=== PATIENT | female | born 1985 | race Caucasian/White ===

== ENCOUNTER 2018-08-31 01:21 | Inpatient (IN) | payer MEDICAID ==
[~2018-08-31] VITALS: Ht 160 cm; Wt 78.4 kg
[2018-08-31 01:41] VITALS: BP 123/79; PULSE 77; RESP 18; Ht 160 cm; Wt 78.4 kg
[2018-08-31] MEDS ORDERED: LACTATED RINGER'S 1,000 ML IV SCH (01:52)
[2018-08-31] MEDS ORDERED: LACTATED RINGER'S 1,000 ML IV PRN (01:52)
[2018-08-31] MEDS ORDERED: OXYTOCIN 30 UNITS/LR 500 ML IV SCH ×3 (02:00)
[2018-08-31] MEDS ORDERED: IBUPROFEN 600 MG TAB PO PRN (02:00)
[2018-08-31] MEDS ORDERED: METHYLERGONOVINE 0.2 MG INJ IM PRN ×2 (02:00→12:30)
[2018-08-31] MEDS ORDERED: BUTORPHANOL 2 MG INJ IV PRN ×2 (02:00)
[2018-08-31] MEDS ORDERED: MINERAL OIL LIGHT 10 ML VIAL TOP PRN (02:00)
[2018-08-31] MEDS ORDERED: MISOPROSTOL 200 MCG TAB PR PRN ×2 (02:00→12:30)
[2018-08-31] MEDS ORDERED: OXYTOCIN 30 UNITS/LR 500 ML IV PRN ×2 (02:00→12:30)
[2018-08-31] MEDS ORDERED: LIDOCAINE 1% (MPF) 30 ML INJ INJ PRN (02:00)
[2018-08-31] MEDS ORDERED: CARBOPROST 250 MCG INJ IM PRN ×2 (02:00→12:30)
[2018-08-31] MEDS ORDERED: PREN-93 PO (02:05)
[2018-08-31] MEDS ORDERED: AMPICILLIN 2 GM/NS (PMX) 100 ML IV ONE (02:30)
--- NOTE | 2018-08-31 04:02 | TRIAGE ---
OB Triage Datetime Report Generated by CPN: 08/31/2018 04:02 Datetime: 08/31/2018 03:30 Assessment Type: Admission Assessment Vaginal Bleeding: None Maternal Assessment Level of Consciousness: Fully Conscious DTR's/Clonus: DTRs 2+; No Clonus Headache: Denies Blurred Vision: No Respiratory Effort: Unlabored; Regular Rhythm; Equal Expansion Breath Sounds, Left: Clear and Equal Breath Sounds, Right: Clear and Equal Nausea/Vomiting: Denies RUQ Epigastric Pain: Denies Lower Extremities Edema: None Degree: None Upper Extremities Edema: None Degree: None Facial Edema: None Fall Risk Assessment History of Falling: (0) No Secondary Diagnosis: (0) No Ambulatory Aid: (0) Bedrest/Nurse Assist IV Therapy: (20) Yes Gait: (0) Normal/Bedrest/Immobile Mental Status: (0) Oriented to Own Ability Fall Score: 20 Fall Risk Score Definition: No Risk: No action required Pain Assessment Pain Scale: 10 Pain Presence: Intermittent Pain Type: Contraction Pain Location: Abdomen Pain Goal: 3 Datetime: 08/31/2018 03:15 Time of Arrival: 08/31/2018 03:15 EGA: 39.0 Arrived By: Wheelchair Arrived From: Triage Datetime: 08/31/2018 02:34 Vaginal Exam Dilatation (cms): 5.0 Effacement (%): 70 Station: -2 Exam By: ERIKA RN Membrane Status: Ruptured Amniotic Fluid Color: Clear Amniotic Fluid Odor: None Vaginal Bleeding: Normal Show Cervix, Consistency: Soft Presentation 'A': Cephalic Datetime: 08/31/2018 02:32 Pain Assessment Pain Scale: 5 Pain Presence: Intermittent Pain Type: Contraction; Pressure Pain Location: Abdomen; Back; Perineum Pain Relief Measures: Comfort Measures Datetime: 08/31/2018 02:25 Labor Evaluation Frequency: 1-6 Monitor Mode: External Duration (sec)2399: 40-80 Quality: Mild Pattern: Normal: <= 5 Contractions in 10 Minutes Resting Tone [place]: Relaxed Heart Rate FHR Baseline Rate: 135 Monitor Mode: External US Variability: Moderate 6-25 bpm Accelerations: 15X15 Decelerations: None Category: Category I Comments: MONITOR OFF, PT TRANSFERRED TO FB VIA GURNEY ACCOMPANIED BY RN, [employer]AMP MANAGER, _ PT FAMILY Pain Assessment Pain Scale: 3 Pain Presence: Intermittent Pain Type: Contraction Pain Location: Abdomen Pain Relief Measures: Comfort Measures Datetime: 08/31/2018 02:06 Time of Arrival: 08/31/2018 01:07 EGA: 39.0 Arrived By: Wheelchair Arrived From: Home Chief Complaint: SROM AROUND 0000 CLEAR FLUIDS, NO UC'S FELT YET Movement: Present Contractions: Denies/Absent Time Contractions Began: 08/31/2018 01:30 Contractions: IRREGULAR Rupture of Membranes: Ruptured Vaginal Bleeding: Normal Show Vaginal Discharge: Denies Recent Sexual Intercouse: Denies Abdominal Trauma: Not Applicable Patient Complaints: Other Time Provider Notified: 08/31/2018 01:47 Provider Notified: Initial Plan: EFM, VS, SVE, CALL OB Datetime: 08/31/2018 01:47 Membrane Status: Ruptured Datetime: 08/31/2018 01:45 Vaginal Exam Dilatation (cms): 4.0 Effacement (%): 60 Station: -2 Exam By: ERIKA VARELA Membrane Status: Ruptured Vaginal Bleeding: Normal Show Nitrazine: Positive Cervix, Consistency: Soft Cervix, Position: Midposition Presentation 'A': Cephalic Datetime: 08/31/2018 01:41 Assessment Type: Triage Maternal Assessment Level of Consciousness: Fully Conscious DTR's/Clonus: DTRs 2+; No Clonus Headache: Denies Blurred Vision: No Respiratory Effort: Unlabored; Regular Rhythm; Equal Expansion Breath Sounds, Left: Clear and Equal Breath Sounds, Right: Clear and Equal Nausea/Vomiting: Denies RUQ Epigastric Pain: Denies Lower Extremities Edema: None Degree: None Upper Extremities Edema: None Degree: None Facial Edema: None Fall Risk Assessment History of Falling: (0) No Secondary Diagnosis: (0) No Ambulatory Aid: (0) Bedrest/Nurse Assist IV Therapy: (0) No Gait: (0) Normal/Bedrest/Immobile Mental Status: (0) Oriented to Own Ability Fall Score: 0 Fall Risk Score Definition: No Risk: No action required Datetime: 08/31/2018 01:24 Stage of : OB Triage Monitor Mode: External Monitor Mode: External US
--- NOTE | 2018-08-31 04:04 | PREAC ---
Date/Time of Note Date/Time of Note DATE: 08/31/18 TIME: 04:03 Anesthesia Eval and Record Evaluation Time Pre-Procedure Interview DATE: 08/31/18 TIME: 04:03 Age 33 Sex female NPO: 8 hrs Preoperative diagnosis IUP Planned procedure L&D Epidural Past Medical History Past Medical History: None Surgery & Anesthesia Issues No known issue Meds Anticoagulation: No Beta Teri within 24 hr: No Reason Beta Teri not given: Pt. not on B-Teri Reported Medications Vit No.124/Iron/FA ( Vitamin Tablet) 1 Each Tablet, 1 EACH PO, TAB 08/31/18 Current Medications Lactated Ringer's 1,000 ml @ 125 mls/hr Q8H IV Last administered on 08/31/18at 02:35; Admin Dose 125 MLS/HR; Start 08/31/18 at 01:52 Ampicillin 50 ml @ 100 mls/hr Q4H IV ; Start 08/31/18 at 06:30 Butorphanol Tartrate (Stadol) 1 mg Q2H PRN IV .PAIN SCALE 1-5; Start 08/31/18 at 02:00 Butorphanol Tartrate (Stadol) 2 mg Q2H PRN IV .PAIN SCALE 6-10; Start 08/31/18 at 02:00 Lidocaine (Xylocaine 1% (Mpf)) 30 ml ONCE PRN INJ .EPISIOTOMY; Start 08/31/18 at 02:00 Oxytocin/Lactated Ringer's 500 ml @ 500 mls/hr ONCE POST IV ; Start 08/31/18 at 02:00 Oxytocin/Lactated Ringer's 500 ml @ 125 mls/hr POST IV ; Start 08/31/18 at 02:00 Ibuprofen (Motrin) 600 mg ONCE PRN PO .PAIN 1-5; Start 08/31/18 at 02:00 Lactated Ringer's 1,000 ml @ 2,000 mls/hr Q30M PRN IV .ANESTHESIA Last administered on 08/31/18at 03:58; Admin Dose 2,000 MLS/HR; Start 08/31/18 at 01:52 Oxytocin/Lactated Ringer's 500 ml @ 0 mls/hr ONCE PRN IV .VAGINAL BLEEDING; Start 08/31/18 at 02:00 Methylergonovine Maleate (Methergine) 0.2 mg ONCE PRN IM .VAGINAL BLEEDING; Start 08/31/18 at 02:00 Carboprost Tromethamine (Hemabate) 250 mcg ONCE PRN IM .VAGINAL BLEEDING; Start 08/31/18 at 02:00 Misoprostol (Cytotec) 1,000 mcg ONCE PRN MD .VAGINAL BLEEDING; Start 08/31/18 at 02:00 Oxytocin/Lactated Ringer's 500 ml @ 0 mls/hr FOR AUGMENTATION IV ; Start 08/31/18 at 02:00 Mineral Oil (Muri-Lube) 10 ml PRN PRN TOP DELIVERY LUBRICATION; Start 08/31/18 at 02:00 Meds reviewed: Yes Allergies Coded Allergies: No Known Allergy (Unverified , 08/31/18) Allergies Reviewed: Yes Labs/Studies Labs Reviewed: Reviewed by anesthesiologist Result Diagram: 08/31/18 0218 Laboratory Tests 08/31/18 02:18 Blood Bank Test 08/31/18 02:18 Antibody Screen NEGATIVE Blood Type O POSITIVE Rh Immune Globulin Candidate NO test: Positive Studies: ECG Pre-procedure Exam Last vitals Vital Signs Date Temp Pulse Resp B/P (MAP) Pulse Ox O2 O2 Flow FiO2 Time Delivery Rate 08/31/18 98.3 77 18 123/79 Room Air 01:41 (94) Airway: Adequate mouth opening, Adequate thyromental dist Mallampati: Mallampati II Teeth: Normal Lung: Normal Heart: Normal ASA Physical Status ASA physical status: 2 Emergency: None Planned Anesthetic Neuraxial: Epidural Planned Pain Management Epidural, Parenteral pain med Pre-operative Attestations Prior to commencing anesthesia and surgery, the patient was re-evaluated, there was verification of: *The patient's identity *The results of appropriate recent lab work and preoperative vital signs *The above evaluation not changing prior to induction *Anesthetic plan, risk benefits, alternative and complications discussed with patient/family; questions answered; patient/family understands, accepts and wishes to proceed. MADONNA WOODARD MD August 31, 2018 04:04
[2018-08-31] MEDS ORDERED: FENTAnyl 2MCG/ML-ROPIV 0.2% 100 ML ONE (04:05)
[2018-08-31] MEDS ORDERED: ONDANSETRON 4 MG INJ IV PRN ×2 (04:30→12:30)
[2018-08-31] MEDS ORDERED: DIPHENHYDRAMINE 50 MG INJ IV PRN ×2 (04:30→12:30)
[2018-08-31] MEDS ORDERED: FENTAnyl 2MCG/ML-ROPIV 0.2% 100 ML BAG EPI SCH (04:30)
[2018-08-31] MEDS ORDERED: NALOXONE (0.4 MG/ML) INJ IV PRN (04:30)
[2018-08-31] MEDS ORDERED: AMPICILLIN 1 GM/NS (PMX) 50 ML IV SCH (06:30)
[2018-08-31] MEDS ORDERED: MISOPROSTOL 50 MCG CAPSULE PO ONE (09:30)
--- NOTE | 2018-08-31 11:33 | HP ---
Date/Time of Note Date/Time of Note DATE: 08/31/18 TIME: 11:30 OB - History Hx of Present Free Text/Dictation Patient is a 33-year-old 2 para 1 at 38 weeks and 6 days of gestation with estimated date of delivery September 07, 2018 Patient presents with chief complaint of leaking fluid and uterine contractions She reports positive movement, denies vaginal bleeding GBS status is unknown Estimated Due Date: September 07, 2018 : 2 Para: 1 Care: Good Care Past Family/Social History * Past Medical, Surgical, Family and Obstetric Histories reviewed from chart. OB Admission Exam Vital Signs Vital Signs Vital Signs Date Temp Pulse Resp B/P (MAP) Pulse Ox O2 O2 Flow FiO2 Time Delivery Rate 08/31/18 98.3 77 18 123/79 Room Air 01:41 (94) Physical Exam HEENT: WNL Heart: Rhythm Normal Lungs: Clear, Equal Abdomen: WNL Extremities: Normal Reflexes: Normal Cervical Dilatation: 4cm Effacement: 50% Station: -2 Membranes: Ruptured Amniotic Fluid: Clear Heart Rate: 140's Accelerations: Accelerations Present Decelerations: No Decelerations Varibility: Moderate Contractions on Admission: < 5 Minutes Apart Intensity: Moderate Last 72 hours Lab Results CBC & BMP 08/31/18 02:18 PROCEDURE: US OB. CLINICAL INDICATION: Size and dates TECHNIQUE: Multiple sonographic images of the pelvis and gravid uterus were obtained. The images were reviewed on a PACS workstation. COMPARISON: No prior studies are available for comparison. FINDINGS: Gestation: Single live intrauterine gestation. Cardiac activity: 137 beats per minute. Presentation: Vertex. Placenta: Location: Anterior. Appearance: No previa or abruption. Measurements: BPD = 8.7 cm, 34 weeks and 6 days HC = 32.2 cm, 36 weeks and 3 days AC = 34.9 cm, 38 weeks and 6 days FL = 7.3 cm, 37 weeks and 2 days Gestational Age: AUA estimated gestational age: 36 weeks 6 days LMP estimated gestational age: 39 weeks 0 days AUA estimated date of delivery: 09/22/18 The EFW = 3279 g, 36%ile based on LMP age. RPTAT: AA IMPRESSION: Single live intrauterine gestation of 36 weeks 6 days by ultrasound criteria. .Elvis Porter MD, MD Date Time Electronically viewed and signed by .Elvis Porter MD, MD on 08/31/2018 07:48 .S/ CC: SUDHA OSCAR MD [phone] PROCEDURE: US OB biophysical profile. CLINICAL INDICATION: decreased movements, TECHNIQUE: Multiple sonographic images of the pelvis were obtained. The images were reviewed on a PACS workstation. COMPARISON: No prior studies are available for comparison. FINDINGS: There is a single live intrauterine gestation. Cardiac activity is present with 137 beats per minute. There is a vertex presentation. The placenta is anterior. There is no evidence of placental abruption. JUAN RAMON = 9.3 cm. Biophysical profile: movement 2/2 tone 2/2. breathing 2/2 JUAN RAMON 2/2 Total 88 RPTAT: AA . IMPRESSION: Normal biophysical profile. . .Elvis Porter MD, MD Date Time Electronically viewed and signed by .Elvis Porter MD, MD on 08/31/2018 07:48 .S/ CC: SUDHA OSCAR MD [id number] OB Assessment/Plan Reason for admission: active labor, rupture of membranes Induction Method: per Pitocin Protocol Other plan: Admit to labor and delivery Antibiotics for GBS prophylaxis Oxytocin augmentation Pain meds as needed Copies To: CC: CLAUDIA WESLEY BAHAREH MD August 31, 2018 11:33
[2018-08-31 11:35] VITALS: BP 116/64; PULSE 68; RESP 18
[2018-08-31] MEDS: DEXTROSE 5%-LR 1,000 ML IV SCH ×2 (12:10→20:10)
[2018-08-31] MEDS ORDERED: ACETAMINOPHEN 325 MG TAB PO PRN (12:30)
[2018-08-31] MEDS ORDERED: SENNA/DOCUSATE NA (8.6MG/50MG) TAB PO PRN (12:30)
[2018-08-31] MEDS ORDERED: WITCH HAZEL/GLYCERIN PAD PR PRN (12:30)
[2018-08-31] MEDS: IBUPROFEN 600 MG TAB PO SCH ×2 (12:30→17:29)
[2018-08-31] MEDS ORDERED: ZOLPIDEM 5 MG TAB PO PRN (12:30)
[2018-08-31] MEDS ORDERED: DIBUCAINE 1% 30 GM OINT TOP PRN (12:30)
[2018-08-31] MEDS ORDERED: OXYCODONE/ASPIRIN (4.88/325) TAB PO PRN (12:30)
[2018-08-31] MEDS ORDERED: BENZOCAINE 20% 56 ML SPRAY TOP PRN (12:30)
[2018-08-31] MEDS ORDERED: LANOLIN HPA 1 PKT TOP PRN (12:30)
[2018-08-31 12:35] VITALS: BP 112/80; PULSE 80; RESP 18
[2018-08-31] MEDS: LACTATED RINGER'S 1,000 ML IV* SCH ×2 (13:18→20:10)
[2018-08-31 15:30] VITALS: BP 101/60; PULSE 76; RESP 20
[2018-08-31 20:15] VITALS: BP 111/61; PULSE 77; RESP 17
[2018-09-01] MEDS: IBUPROFEN 600 MG TAB PO SCH ×4 (00:24→17:55)
[2018-09-01 03:47] VITALS: BP 101/66; PULSE 80; RESP 18
[2018-09-01] MEDS: DEXTROSE 5%-LR 1,000 ML IV SCH ×2 (04:10→12:10)
[2018-09-01] MEDS: LACTATED RINGER'S 1,000 ML IV* SCH ×3 (04:10→20:10)
[2018-09-01 08:00] VITALS: BP 104/69; PULSE 78; RESP 19
--- NOTE | 2018-09-01 15:54 | QN ---
Documentation Comment day #1 Status post Patient stable and afebrile Vital signs stable VS - Last 72 Hours, by Label Date Temp Pulse Resp B/P (MAP) Pulse Ox O2 O2 Flow FiO2 Time Delivery Rate 09/01/18 98.0 78 19 104/69 Room Air 08:00 (81) 09/01/18 98.1 80 18 101/66 Room Air 03:47 (78) 08/31/18 98.2 77 17 111/61 Room Air 20:15 (78) 08/31/18 99.5 76 20 101/60 15:30 (74) 08/31/18 98.1 80 18 112/80 Room Air 12:35 (91) 08/31/18 98.3 68 18 116/64 Room Air 11:35 (81) 08/31/18 98.3 77 18 123/79 Room Air 01:41 (94) Hematology - 72 Hrs Test 08/31/18 02:18 09/01/18 07:11 Hematocrit 32.8 % (37.0-47.0) L 33.1 % (37.0-47.0) L Hemoglobin 11.0 g/dl (12.0-16.0) L 10.7 g/dl (12.0-16.0) L Mean Corpuscular 31.1 pg (29.0-33.0) 30.7 pg (29.0-33.0) Hemoglobin Mean Corpuscular 33.5 g/dl (32.0-37.0) 32.3 g/dl (32.0-37.0) Hemoglobin Concent Mean Corpuscular Volume 92.7 fl (82.0-101.0) 95.1 fl (82.0-101.0) Mean Platelet Volume 11.0 fl (7.4-10.4) H 11.5 fl (7.4-10.4) H Platelet Count 208 10^3/UL (140-415) 198 10^3/UL (140-415) Red Blood Count 3.54 10^6/ul (4.20-5.40) 3.48 10^6/ul (4.20-5.40) L L Red Cell Distribution 13.2 % (11.5-14.5) 13.6 % (11.5-14.5) Width White Blood Count 8.4 10^3/ul (4.8-10.8) 9.9 10^3/ul (4.8-10.8) Abdomen soft, fundus firm Perineum intact Extremities nontender Assessment and plan Patient stable and doing well Continue with routine care SUDHA OSCAR MD September 01, 2018 15:54
[2018-09-01 16:00] VITALS: BP 105/67; PULSE 66; RESP 19
[2018-09-01 20:05] VITALS: BP 119/72; PULSE 72; RESP 18
[2018-09-02] MEDS: IBUPROFEN 600 MG TAB PO SCH ×3 (00:02→12:14)
[2018-09-02] MEDS: DEXTROSE 5%-LR 1,000 ML IV SCH ×3 (00:54→12:10)
[2018-09-02 04:05] VITALS: BP 113/70; PULSE 75; RESP 18
[2018-09-02] MEDS: LACTATED RINGER'S 1,000 ML IV* SCH ×2 (04:10→12:10)
[2018-09-02 08:00] VITALS: BP 114/77; PULSE 71; RESP 19
[2018-09-02] MEDS ORDERED: DIPHTH/TET/ACEL PERTUSS (ADULT) 0.5 ML VIAL IM* ONE (09:00)
[2018-09-02] MEDS ORDERED: MEASLES,MUMPS,RUBELLA VACCINE INJ SC* ONE (09:00)
--- NOTE | 2018-09-02 11:13 | PAC ---
Date/Time of Note Date/Time of Note DATE: 09/02/18 TIME: 11:12 Post-Anesthesia Notes Post-Anesthesia Note Last documented vital signs Vital Signs Date Temp Pulse Resp B/P (MAP) Pulse Ox O2 O2 Flow FiO2 Time Delivery Rate 09/02/18 97.8 71 19 114/77 Room Air 08:00 (89) Activity: WNL Respiratory function: WNL Cardiovascular function: WNL Mental status: Baseline Pain reasonably controlled: Yes Hydration appropriate: Yes Nausea/Vomiting absent: Yes Comments BP:112/56, P:88, Spo2:100%, T:98,8 MADONNA WOODARD MD September 02, 2018 11:13
--- NOTE | 2018-09-02 11:34 | QN ---
Documentation Comment PPD#2 is stable afebrile tolerates diet No Vb +BM +VOIDs BP WNL VS stable Gen NAD Abd soft NT ND Genitalia No blood at perineum --->Discharge home with precautions --->F/u with her provider --->Questions answered Precautions discussed LOUISE LEE M.D. September 02, 2018 11:34
--- NOTE | 2018-09-02 11:35 | DS ---
Date/Time of Note Date/Time of Note DATE: 09/02/18 TIME: 11:34 Discharge Summary Admission/Discharge Info Admit Date/Time August 31, 2018 at 01:47 Discharge Date/Time Discharge Diagnosis Patient Condition: Good Hospital Course uneventful Home Meds Reported Medications Vit No.124/Iron/FA ( Vitamin Tablet) 1 Each Tablet, 1 EACH PO, TAB 08/31/18 Primary Care Provider Care Physician No Primary Pending Labs Laboratory Tests Test 09/02/18 06:38 Lab Scanned Report REFERENCE LAB [id number] LOUISE LEE M.D. September 02, 2018 11:35
--- NOTE | 2018-09-03 14:55 | DELSUM ---
Delivery Summary A-C Datetime Report Generated by CPN: 09/03/2018 14:55 DELIVERY PERSONNEL Gas Pumper: Kimberly Almendarez MATERNAL INFORMATION Delivery Anesthesia: Epidural Medications in Delivery: Pitocin 30 units Delivery QBL (ml): 251 Placenta Cultured: No Maternal Complications: None LABOR SUMMARY EDC: 09/07/2018 00:00 No. Babies in Womb: 1 Attempted: No Labor Anesthesia: Epidural LABOR INFORMATION Reason for Induction: Not Applicable Onset of Labor: 08/31/2018 01:45 Complete Dilatation: 08/31/2018 08:05 Oxytocin: Augmentation Group B Beta Strep: Not Done Antibiotics # of Doses: Ampicillin x2 Antibiotics Time of Last Dose: 08/31/2018 06:37 Steroids Given: None Reason Steroids Not Administered: Not Applicable MEMBRANES Membranes Rupture Method: Spontaneous Rupture of Membranes: 08/31/2018 00:00 Length of Rupture (hr): 8.83 Amniotic Fluid Color: Clear Amniotic Fluid Amount: Moderate Amniotic Fluid Odor: None STAGES OF LABOR Stage 1 hr: 6 Stage 1 min: 20 Stage 2 hr: 0 Stage 2 min: 45 Stage 3 hr: 0 Stage 3 min: 3 Total Time in Labor hr: 7 Total Time in Labor min: 8 VAGINAL DELIVERY Episiotomy: None Laceration Extension: First Degree Laceration Type: Vaginal Other Laceration: labia and posterior vaginal Laceration Repair: Yes Initial Vag Sponge Count: 10 Final Vag Sponge Count: 10 Initial Vag Sharps Count: 1 Final Vag Sharps Count: 2 Sponge Count Correct: Yes; Vaginal Sweep Performed Sharps Count Correct: Yes BABY A INFORMATION Delivery Date/Time: 08/31/2018 08:50 Method of Delivery: Vaginal Born in Route : Yes : N/A Forceps: N/A Vacuum Extraction: N/A Shoulder Dystocia : N/A SHOULDER DYSTOCIA BABY A Delivery Date/Time: 08/31/2018 08:50 PRESENTATION/POSITION BABY A Presentation: Cephalic Cephalic Presentation: Vertex Vertex Position: Left Occipital Anterior Breech Presentation: N/A PLACENTA INFORMATION BABY A Placenta Delivery Time : 08/31/2018 08:53 Placenta Method of Delivery: Spontaneous Placenta Status: Delivered SCORES BABY A Heart Rate 1 min: >100 bpm Resp Effort 1 min: Good Cry Reflex Irritability 1 min: Cough/Sneeze/Pulls Away Muscle Tone 1 min: Active Motion Color 1 min: Body [place], Extremit Blue Resuscitation Effort 1 min: Tactile Stimulation SCORE 1 MIN: 9 Heart Rate 5 min: >100 bpm Resp Effort 5 min: Good Cry Reflex Irritability 5 min: Cough/Sneeze/Pulls Away Muscle Tone 5 min: Active Motion Color 5 min: Body [place], Extremit Blue Resuscitation Effort 5 min: Tactile Stimulation SCORE 5 MIN: 9 INFORMATION BABY A Gestational Age at Delivery: 39.0 Gestational Status: Full Term- 39- 40.6 Weeks Infant Outcome : Liveborn Condition : Stable Infant Sex: Female IDENTIFICATION/MEDS BABY A ID Band Number: [id number] ID Band Location: Right Leg; Left Arm Sensor Applied: Yes Sensor Number: [id number] Sensor Location : Cord Clamp Vitamin K Given : Not Given Erythromycin Given: Not Given WEIGHT/LENGTH BABY A Birthweight (gm): 3320 Infant Weight (lb): 7 Weight (oz): 5 Infant Length (in): 19.50 Length (cm): 49.53 CORD INFORMATION BABY A No. Cord Vessels: 3 Nuchal Cord : Around Neck x1, Loose Cord Blood Taken: Yes Infant Suction: Mouth; Nose ASSESSMENT BABY A Complications: None Physical Findings at Delivery: Within Normal Limits Infant Respirations: Appears Normal Compliance Analyst/ALS Called : No Care By: Clifton Jones Transferred To: Remains with Mother
--- NOTE | 2018-10-15 15:05 | LDN ---
Date/Time of Note Date/Time of Note DATE: 10/15/18 TIME: 15:02 Delivery Summary Late entry note. Patient had a normal vaginal delivery on 08/31/2018 33 years old 2 para 1-0-0-1 with term intrauterine delivered a viable female over first-degree laceration. Nose and mouth suction. Rest of body delivered. Cord clamp and caught after stopping pulsation. Baby given to the nurse. Placenta delivered spontaneously and intact with three- vessel cord. Laceration repaired with 3-0 Vicryl. Patient tolerated procedure well Time of delivery 08:50 Weight 3320 g 9 at 1 minutes and 9 at 5 minutes EBL 250 mL Weeks of Gestation Term Placenta Delivered: Spontaneously Meconium: none Episiotomy: No Estimated blood loss: 250 Sponge & Needle done & correct: Yes All needle counts correct: Yes Any foreign bodies felt in the: No Infant Delivery Information Sex Sex: female Apgars 1 Minute: 9 5 Minute: 9 10 Minute: 10 Suctioning Nose & mouth suctioned at dontrell: Yes Umbilical Cord Umbilical cord with: 3 Vessels Cord presentations: no nuchal cord Cord Blood was obtained: Yes Mother & Baby Disposition Disposition Mom & Baby to Maternity; Good: Yes CLAUDIA WESLEY Oct 15, 2018 15:05
== END 2018-09-02 14:54 | disposition home or self-care (01) | DRG 807 ==
LOC: L-D 01:21 → OBT 01:21 → L-D 01:47 → PP1 11:41
PROVIDERS: ADMIT Obstetrics & Gynecology; ATTEND Obstetrics & Gynecology
PROC: 10E0XZZ Delivery of Products of Conception, External Approach (ICD-10-PCS; principal; 2018-08-31)
PROC: 0HQ9XZZ Repair Perineum Skin, External Approach (ICD-10-PCS; 2018-08-31)
DX: O70.0 First degree perineal laceration during delivery (principal); Z37.0 Single live birth; Z3A.38 38 weeks gestation of pregnancy
CPT/HCPCS: 62322; 76815; 76818; 85025; 85610; 85730; 86592; 86850; 86900; 86901; 87340; 90715; G0463; J0290; J2590; J3010; J7120; J7121